=== PATIENT | male | born 1995 | race Caucasian/White ===

== ENCOUNTER 2018-04-17 00:42 | Emergency (ER) | payer OTHER, MEDICAID ==
[2018-04-17] MEDS ORDERED: LIDOCAINE 1% (MDV) 10 ML INJ INJ (01:22)
[2018-04-17] MEDS: LIDOCAINE 1% (MPF) 5 ML VIAL INJ (02:07)
== END 2018-04-17 02:08 | disposition home or self-care (01) ==
LOC: FTE 00:42
DX: S01.511A Laceration without foreign body of lip, initial encounter (principal); W21.03XA Struck by baseball, initial encounter; Y92.320 Baseball field as the place of occurrence of the external cause
CPT/HCPCS: 12011; 99283-25

== ENCOUNTER 2018-04-19 19:20 | Emergency (ER) | payer OTHER | END 2018-04-19 20:49 | disposition home or self-care (01) | LOC: FTE 19:20 | DX: Z48.01 Encounter for change or removal of surgical wound dressing (principal) | CPT/HCPCS: 99281; Z7502 ==

== ENCOUNTER 2018-04-25 13:02 | Emergency (ER) | payer OTHER | END 2018-04-25 16:05 | disposition home or self-care (01) | LOC: FTE 13:02 | DX: Z48.02 Encounter for removal of sutures (principal); F17.210 Nicotine dependence, cigarettes, uncomplicated | CPT/HCPCS: 99281; Z7502 ==